=== PATIENT | male | born 1965 | race Caucasian/White ===

== ENCOUNTER → 2017-05-25 | Outpatient (CLI) | payer BC | END | disposition home or self-care (01) | LOC: GMAB 10:53 | PROVIDERS: ATTEND Family Medicine | DX: Z00.00 Encounter for general adult medical examination without abnormal findings (principal) ==

== ENCOUNTER → 2018-06-07 | Outpatient (CLI) | payer BC | LOC: GMAE 13:19 | PROVIDERS: ATTEND Family Medicine | DX: Z00.00 Encounter for general adult medical examination without abnormal findings (principal) ==

== ENCOUNTER → 2019-07-24 | Outpatient (CLI) | payer BC | LOC: GMAE 10:37 | PROVIDERS: ATTEND Family Medicine | DX: Z00.00 Encounter for general adult medical examination without abnormal findings (principal) ==

== ENCOUNTER → 2019-08-19 | Outpatient (CLI) | payer BC ==
--- NOTE | 2019-08-19 12:40 | MRI ---
Study: MRI of the Right Shoulder. Indication: PAIN IN RIGHT SHOULDER Technique: Multiplanar, multi sequence MRI of the right shoulder was obtained without intravenous contrast. Comparison: None. Findings: Moderate hypertrophic AC joint osteoarthritis and tiny joint effusion. Moderate contouring underlying supraspinatus muscle belly. Type I acromion with moderate lateral downsloping. Within the anterolateral aspect of the humeral neck/metaphysis is pronounced susceptibility artifact. This may relate to prior surgical repair of a fracture. The artifact is inferior to the greater tuberosity and not felt to relate to a prior rotator cuff tendon repair. The artifact does degrade the examination. Supraspinatus and infraspinatus tendinosis withlow to intermediate attenuation throughout. Irregular intermediate to high grade articular tearing throughout the insertional and critical zone fibers of the mid supraspinatus tendon to the posterior infraspinatus tendon noted. The tear defect measures approximately 27 mm AP by 19 mm transverse and is partially filled with granulation tissue. No full-thickness tear defect. Mild medial myotendinous retraction by up to 10 mm. Subscapularis tendinosis with low-grade interstitial fissuring/articular tearing superiorly. Teres minor tendon intact. Grade 1 fatty infiltration rotator cuff musculature. Intracapsular long head biceps tendinosis. Circumferential labral tearing and truncation. Minimal glenohumeral joint osteoarthritis and tiny joint effusion. No acute fracture. Impression: Supraspinatus and infraspinatus tendinosis, attenuation, and medial myotendinous retraction. Irregular intermediate to high-grade articular tearing throughout both tendons above. Subscapularis tendinosis with low-grade interstitial fissuring/ articular tearing superiorly. Grade 1 fatty infiltration rotator cuff musculature. Intracapsular long head biceps tendinosis. Circumferential labral tearing and truncation. Minimal glenohumeral joint osteoarthritis with a tiny joint effusion. Moderate hypertrophic AC joint osteoarthritis. Electronically signed by: Thaddeus Estrella MD 08/19/2019 12:38 PM CDT
== END ==
LOC: MRI 08:43
PROVIDERS: ATTEND Family Medicine
DX: M19.011 Primary osteoarthritis, right shoulder (principal); S43.431A Superior glenoid labrum lesion of right shoulder, initial encounter; M75.31 Calcific tendinitis of right shoulder; M25.811 Other specified joint disorders, right shoulder